=== PATIENT | male | born 1965 | race Caucasian/White ===

== ENCOUNTER → 2017-01-20 | Outpatient (CLI) | payer OTHER ==
[~2017-01-20] MED LIST: ASPIRIN EC81 MG PO; CHANTIX1 MG PO; CRESTOR10 MG PO; ELAVIL50 MG PO; FISH OIL 1,0001 EAC5 PO; PRINIVIL OR ZES10 MG PO
[2017-01-20 17:11] LABS: ANION GAP 11.9 (10.0-19.0); BLOOD UREA NITROGEN 14 mg/dL (6-24); CALCIUM 8.9 mg/dL (8.5-10.5); CHLORIDE 106 mMol/L (96-110); CO2 25 mMol/L (22-32); ESTIMATED GFR (MDRD EQUATION) > 60; POTASSIUM 3.9 mMol/L (3.7-5.1); SODIUM 139 mMol/L (135-145)
== END ==
LOC: LGSOS 16:58
PROVIDERS: Internal Medicine Interventional Cardiology
DX: I10 Essential (primary) hypertension (principal)

== ENCOUNTER → 2017-01-26 | Outpatient (CLI) | payer OTHER | END | disposition disaster alternative care site (69) | LOC: GPOC 01-24 13:00 | DX: Z13.6 Encounter for screening for cardiovascular disorders (principal); Z82.49 Family history of ischemic heart disease and other diseases of the circulatory system | CPT/HCPCS: J2001 ==